=== PATIENT | female | born 1995 | race Hispanic/Latino ===

== ENCOUNTER 2018-05-12 23:28 | Emergency (ER) | payer BC, OTHER ==
[2018-05-12 23:28] VITALS: BMI 23.0
--- NOTE | 2018-05-13 00:52 | ED PDOC ---
Arrival/HPI - General Chief Complaint: Female Genitourinary Time Seen by Provider: 05/12/18 23:34 Historian: Patient - History of Present Illness Narrative History of Present Illness (Text): 22 y/o female with PMH of asthma, migraines, IBS presents to the ED c/o dysuria, frequency x 1 day. Pt used a new vaginal soap at 2pm, caused irritation redness to genital area. Since that time, pt has been experiencing dysuria every time she tries to urinate. Denies fever, chills, abdominal pain, back pain, hematuria, nausea, vomiting, vaginal discharge/odor/itching, or any other associated symptoms. Past Medical History - Provider Review Nursing Documentation Reviewed: Yes - Pulmonary Hx Asthma: Yes - Neurological Hx Migraine: Yes - Gastrointestinal Hx Gastrointestinal Disorders: Yes (IBS constipation) - Psychiatric Hx Depression: No Hx Emotional Abuse: No Hx Physical Abuse: No Hx Substance Use: No - Anesthesia Hx Anesthesia: Yes Hx Anesthesia Reactions: No Hx Malignant Hyperthermia: No - Suicidal Assessment Feels Threatened In Home Enviroment: No Family/Social History - Physician Review Nursing Documentation Reviewed: Yes Family/Social History: No Known Family HX Smoking Status: Never Smoked Hx Alcohol Use: No Hx Substance Use: No Allergies/Home Meds Allergies/Adverse Reactions: Allergies No Known Allergies Allergy (Verified 01/18/12 08:04) Review of Systems - Review of Systems Constitutional: Normal. absent: Fatigue, Fevers Eyes: Normal ENT: Normal. absent: Sore Throat, Sinus Congestion Respiratory: Normal. absent: SOB, Cough Cardiovascular: Normal. absent: Chest Pain, Palpitations Gastrointestinal: Normal. absent: Abdominal Pain, Nausea, Vomiting Genitourinary Female: Dysuria, Frequency. absent: Vaginal Bleeding, Vaginal Discharge Musculoskeletal: Normal. absent: Arthralgias, Back Pain, Neck Pain Skin: Normal. absent: Rash Neurological: Normal. absent: Headache, Dizziness Endocrine: Normal Hemo/Lymphatic: Normal Psychiatric: Normal Physical Exam Vital Signs Reviewed: Yes Vital Signs Temp Pulse Resp BP Pulse Ox 05/12/18 23:28 97.6 F 118 H 18 121/73 100 Temperature: Afebrile Blood Pressure: Normal Pulse: Tachycardic Respiratory Rate: Normal Appearance: Positive for: Well-Appearing, Non-Toxic, Comfortable Pain Distress: None Mental Status: Positive for: Alert and Oriented X 3 - Systems Exam Head: Present: Atraumatic, Normocephalic Pupils: Present: PERRL Extroacular Muscles: Present: EOMI Conjunctiva: Present: Normal Mouth: Present: Moist Mucous Membranes Neck: Present: Normal Range of Motion. No: MIDLINE TENDERNESS, Paraspinal Tenderness Respiratory/Chest: Present: Clear to Auscultation, Good Air Exchange. No: Respiratory Distress, Accessory Muscle Use Cardiovascular: Present: Normal S1, S2, Peripheal Pulses Present, Tachycardic Abdomen: Present: Normal Bowel Sounds. No: Tenderness, Distention, Peritoneal Signs, Rebound, Guarding Genitourinary/Pelvic Exam: Present: Other (mild erythema and inflammation of labia minora). No: Vaginal Discharge, Odor Back: Present: Normal Inspection. No: CVA Tenderness, Midline Tenderness, P araspinal Tenderness Upper Extremity: Present: Normal Inspection, Normal ROM, NORMAL PULSES, Neurovascularly Intact, Capillary Refill < 2s. No: Cyanosis, Edema, Temperature Abnormalties Lower Extremity: Present: Normal Inspection, NORMAL PULSES, Normal ROM, Neurovascularly Intact, Capillary Refill < 2 s. No: Edema, Temperature Abnormalties Neurological: Present: GCS=15, CN II-XII Intact, Speech Normal Skin: Present: Warm, Dry, Normal Color. No: Rashes Psychiatric: Present: Alert, Oriented x 3, Normal Insight, Normal Concentration, Anxious Medical Decision Making ED Course and Treatment: Initial Plan: * Bladder scan * UA * POC preg Bladder scan 47 Pt refusing speculum exam. UA shows protein, ketones, blood. Will treat secondary to UTI symptoms, first dose of keflex here. Advised gynecological and PMD followup Diagnostic testing results and plan of care discussed with patient. Strict instructions given regarding prescription use, importance of followup, and signs/symptoms to return to ER including worsening pain, fever, chills,or any other new/worsening symptoms. Pt verbalized understanding of discussion. Patient is A&Ox3, ambulating with steady gait, with vital signs stable for discharge. Disposition/Present on Arrival - Present on Arrival Any Indicators Present on Arrival: No History of DVT/PE: No History of Uncontrolled Diabetes: No Urinary Catheter: No History of Decub. Ulcer: No History Surgical Site Infection Following: None - Disposition Have Diagnosis and Disposition been Completed?: Yes Diagnosis: UTI (urinary tract infection) Disposition: HOME/ ROUTINE Disposition Time: 01:25 Condition: IMPROVED Discharge Instructions (ExitCare): Urinary Tract Infections in Adults Additional Instructions: Keflex every 12 hours for 7 days Increase fluids Keep genital area clean and dry Followup with [facility] within 2 days Followup with primary doctor within 2 days Prescriptions: Cephalexin Susp [Keflex] 500 mg PO Q12H 7 Days #130 ml [place]: [facility] [place] - Follow up with primary Britton Puckett MD [Staff Provider] - Follow up with primary Olya Porras MD [Medical Doctor] - Follow up with primary Forms: [employer] (Macedonian), WORK NOTE
[2018-05-13 00:58] LABS: URINE BILIRUBIN NEGATIVE (NEGATIVE); URINE BLOOD TRACE-INTACT (NEGATIVE); URINE GLUCOSE (UA) NEGATIVE (NEGATIVE); URINE LEUKOCYTE ESTERASE NEGATIVE Leu/uL (NEGATIVE); URINE PROTEIN 30 mg/dL (<30 mg/dL); URINE UROBILINOGEN 0.2 E.U./dL (<1 E.U./dL)
[2018-05-13 01:00] LABS: URINE APPEARANCE CLEAR (CLEAR); URINE COLOR YELLOW (YELLOW)
[2018-05-13 01:10] LABS: URINE BACTERIA FEW /hpf; URINE EPITHELIAL CELLS MANY /hpf (0-5)
[2018-05-13] MEDS ORDERED: Cephalexin Susp 250 MG/5 ML PO STA (01:27)
[2018-05-13 01:54] VITALS: BP 120/68; PULSE 102; RESP 17; TEMP 97.8; O2SAT 98
== END 2018-05-13 01:54 | disposition home or self-care (01) ==
LOC: ED 23:28
DX: N39.0 Urinary tract infection, site not specified (principal)